=== PATIENT | male | born 1995 | race African-American/Black ===

== ENCOUNTER 2018-03-26 20:13 | Emergency (ER) | payer MEDICAID, OTHER ==
[2018-03-26] MEDS ORDERED: Fluorescein Opthalmic Strip ONE (20:34)
[2018-03-26] MEDS ORDERED: Ibuprofen 800 MG TAB ONE (20:40)
[2018-03-26] MEDS ORDERED: Acetaminophen 500 MG TAB ONE (20:40)
== END 2018-03-26 20:49 ==
LOC: EEVIPCON 20:13 → NAV ERS 20:13
DX: S05.12XA Contusion of eyeball and orbital tissues, left eye, initial encounter (principal); F17.210 Nicotine dependence, cigarettes, uncomplicated; W50.1XXA Accidental kick by another person, initial encounter
CPT/HCPCS: 99283